=== PATIENT | female | born 1980 | race Caucasian/White ===

== ENCOUNTER 2016-07-22 16:15 | Observation (INO) | payer OTHER ==
[~2016-07-22] VITALS: Ht 155 cm; Wt 61.2 kg
[2016-07-22] MEDS ORDERED: PREN-134 PO (16:16)
[2016-07-22] MEDS ORDERED: RINGERS SOLUTION,LACTATED 1,000 ML IV ONE ×2 (17:09→17:15)
[2016-07-22 17:45] VITALS: BP 131/71
[2016-07-22] MEDS ORDERED: NIFEdipine 10 MG CAPSULE PO ONE ×2 (17:45→19:15)
[2016-07-22] MEDS ORDERED: ACETAMINOPHEN 325 MG TABLET PO ONE (23:45)
[2016-07-23] MEDS: NIFEdipine 10 MG CAPSULE PO SCH ×2 (01:42→07:29)
[2016-07-23] MEDS: RINGERS SOLUTION,LACTATED 1,000 ML IV SCH ×2 (01:43→08:10)
== END 2016-07-23 08:35 | disposition home or self-care (01) ==
LOC: 4S 16:15
PROVIDERS: ADMIT Obstetrics & Gynecology; ATTEND Obstetrics & Gynecology
DX: O26.893 Other specified pregnancy related conditions, third trimester (principal); N89.8 Other specified noninflammatory disorders of vagina; Z3A.34 34 weeks gestation of pregnancy
CPT/HCPCS: 59025; 96360; 96361; G0378 ×2; J7120 ×2

== ENCOUNTER 2016-07-27 03:50 | Inpatient (IN) | payer OTHER ==
[~2016-07-27 03:50] MED LIST: PREN-134 PO
[2016-07-27] MEDS ORDERED: OXYTOCIN 10 UNITS/ML VIAL IM ONE (04:00)
[2016-07-27 05:49] VITALS: BP 125/65
[2016-07-27] MEDS ORDERED: OXYTOCIN 30 UNITS/LACT RINGERS 500 ML IV ONE (05:51)
[2016-07-27 05:57] LABS: BASOPHILS # (AUTO) 0.06 K/uL (0.00-0.20); BASOPHILS % (AUTO) 0.3 % (0.0-2.0); EOSINOPHILS % (AUTO) 0.01 % (1.0-6.0); HEMATOCRIT 40.9 % (36-46); HEMOGLOBIN 13.7 g/dL (12.0-16.0); LYMPHOCYTES # (AUTO) 0.9 K/uL (1.0-4.8); LYMPHOCYTES % (AUTO) 4.5 % (22.0-44.0); MEAN CORPUSCULAR HEMOGLOBIN 30.8 pg (26.0-34.0); MEAN CORPUSCULAR HGB CONC 33.6 G/dL (31.0-37.0); MEAN CORPUSCULAR VOLUME 92 fL (80-100); MONOCYTES # (AUTO) 0.8 K/uL (0.1-1.0); NEUTROPHILS # (AUTO) 18.9 K/uL (1.8-7.7); RED BLOOD CELL COUNT(AUTO) 4.46 MIL/uL (4.00-5.20); RED CELL DISTRIBUTION WIDTH 14.5 % (11.5-14.5); WHITE BLOOD COUNT (AUTO) 20.7 K/uL (4.5-11.0)
[2016-07-27 05:58] LABS: NEUTROPHILS % (AUTO) 91.2 % (40.0-70.0)
[2016-07-27] MEDS ORDERED: OxyCODONE HCL/ACETAMINOPHEN 5-325 MG TABLET PO PRN ×2 (06:00)
[2016-07-27] MEDS ORDERED: GLYCERIN/WITCH HAZEL LEAF 40 PADS JAR TP PRN (06:00)
[2016-07-27] MEDS ORDERED: IBUPROFEN 800 MG TABLET PO PRN (06:00)
[2016-07-27] MEDS ORDERED: LANOLIN 7 GM OINTMENT TP PRN (06:00)
[2016-07-27] MEDS ORDERED: BENZOCAINE 20%/MENTHOL 56 GM SPRAY CANISTER TP PRN (06:00)
[2016-07-27] MEDS: MAGNESIUM HYDROXIDE SUSPENSION 30 ML UDCUP PO PRN ×2 (09:26→20:25)
[2016-07-27 16:47] LABS: RUBELLA SCREEN (IGG) IMMUNE (IMMUNE)
[2016-07-28 06:17] LABS: BASOPHILS % (AUTO) 0.3 % (0.0-2.0); HEMATOCRIT 36.7 % (36-46); HEMOGLOBIN 12.1 g/dL (12.0-16.0); LYMPHOCYTES # (AUTO) 3.2 K/uL (1.0-4.8); LYMPHOCYTES % (AUTO) 24.8 % (22.0-44.0); MEAN CORPUSCULAR HEMOGLOBIN 30.7 pg (26.0-34.0); MEAN CORPUSCULAR HGB CONC 32.9 G/dL (31.0-37.0); MEAN CORPUSCULAR VOLUME 93 fL (80-100); MONOCYTES # (AUTO) 0.8 K/uL (0.1-1.0); MONOCYTES % (AUTO) 6.5 % (2.0-9.0); NEUTROPHILS # (AUTO) 8.7 K/uL (1.8-7.7); NEUTROPHILS % (AUTO) 67.4 % (40.0-70.0); RED BLOOD CELL COUNT(AUTO) 3.94 MIL/uL (4.00-5.20); RED CELL DISTRIBUTION WIDTH 13.8 % (11.5-14.5)
[2016-07-28] MEDS ORDERED: IBUP-2070 PO (09:35)
[2016-07-28] MEDS ORDERED: DSS100 PO (09:41)
== END 2016-07-28 10:30 | disposition home or self-care (01) | DRG 775 ==
LOC: 4S 03:50 → OBSVTOIN 03:50
PROVIDERS: ADMIT Obstetrics & Gynecology; ATTEND Obstetrics & Gynecology
PROC: 10E0XZZ Delivery of Products of Conception, External Approach (ICD-10-PCS; principal; 2016-07-27)
DX: O60.14X0 Preterm labor third trimester with preterm delivery third trimester, not applicable or unspecified (principal); O09.523 Supervision of elderly multigravida, third trimester; Z37.0 Single live birth; Z3A.35 35 weeks gestation of pregnancy
CPT/HCPCS: 86592; 86762; 86850; 86900; 86901; 87340